=== PATIENT | male | born 1985 | race Caucasian/White ===

== ENCOUNTER → 2017-04-05 | Outpatient (CLI) | payer OTHER | END | disposition home or self-care (01) | LOC: EKG 13:00 | DX: I05.1 Rheumatic mitral insufficiency (principal); I07.1 Rheumatic tricuspid insufficiency; I27.20 Pulmonary hypertension, unspecified; R94.31 Abnormal electrocardiogram [ECG] [EKG] | CPT/HCPCS: 93306 ==

== ENCOUNTER 2017-04-19 18:52 | Inpatient (IN) | payer OTHER ==
[~2017-04-19] VITALS: Ht 193 cm; Wt 132.4 kg
[2017-04-19 19:58] LABS: BASOPHIL (%) 0.3 % (0-1); EOSINOPHIL (%) 0.1 % (0-5); HEMATOCRIT 43.9 % (38.0-50.0); HEMOGLOBIN 15.7 G/DL (12.5-16.6); IMMATURE GRANULOCYTE (%) 0.6 % (0.0-0.7); LYMPHOCYTE (%) 9.9 % (15-42); LYMPHOCYTE COUNT 1.4 K/uL (1.0-2.8); MCHC 35.8 G/DL (30.0-36.0); MCV 89.4 FL (86-99); MONOCYTE COUNT 0.7 K/uL (0-0.8); NEUTROPHIL (%) 84.1 % (45-76); NEUTROPHIL COUNT 11.8 K/uL (1.8-6.4); PLATELET COUNT 193 K/uL (156-360); RBC DIS.WIDTH-CV 12.6 % (11.8-14.6); RBC DIS.WIDTH-SD 41.1 % (39-53); RED BLOOD COUNT 4.91 M/uL (4.00-5.50)
[2017-04-19 20:17] LABS: ALBUMIN 4.2 g/dL (3.2-4.8); CHLORIDE 98 mEq/L (99-109); POTASSIUM 4.7 mEq/L (3.7-5.4); SODIUM 136 mEq/L (136-147)
[2017-04-19 20:18] LABS: AMYLASE 62 IU/L (1-118)
[2017-04-19 20:19] LABS: GLUCOSE 127 mg/dL (70-99); TOTAL PROTEIN 6.7 g/dL (6.4-8.3)
[2017-04-19 20:21] LABS: TOTAL BILIRUBIN 0.5 mg/dL (0.0-1.0)
[2017-04-19 20:22] LABS: SERUM ETHYL ALCOHOL < 10 mg/dL
[2017-04-19 20:23] LABS: ALKALINE PHOSPHATASE 59 IU/L (3-129); CREATININE 1.1 mg/dL (0.6-1.3); GFR ESTIMATE (CALCULATED) > 59 mL/min/ (58.99-99999)
[2017-04-19 20:24] LABS: AST (GOT) 31 IU/L (2-34); UREA NITROGEN (BUN) 20 mg/dL (9-23)
[2017-04-19 20:26] LABS: ALT (GPT) 64 IU/L (3-49)
[2017-04-19 22:00] LABS: APPEARANCE CLEAR ((CLEAR)); BILIRUBIN NEGATIVE; BLOOD NEGATIVE; COLOR YELLOW ((YELLOW)); GLUCOSE (STRIP) NEGATIVE; KETONES 5; LEUKOCYTES NEGATIVE; NITRITE NEGATIVE; PROTEIN (STRIP) NEGATIVE; SPECIFIC GRAVITY 1.011 (1.000-1.030); UCUL ADDED? NO; UROBILINOGEN 0.2 MG/DL (0.2-1.0)
[2017-04-19] MEDS ORDERED: SERTRALINE HCL100 MG PO (23:15)
[2017-04-19] MEDS ORDERED: TOPROL XL25 MG PO (23:15)
[2017-04-19] MEDS ORDERED: TYLENOL PM EX-1 EACH PO (23:15)
[2017-04-19] MEDS ORDERED: ERGOCALCIF50000 UNIT PO (23:16)
[2017-04-19] MEDS ORDERED: MEN'S MULTI-VI1 EACH PO (23:16)
[2017-04-19] MEDS ORDERED: MELOXICAM15 MG PO (23:16)
[2017-04-19] MEDS ORDERED: FISH OIL 1,0001 EAC7 PO (23:16)
[2017-04-19] MEDS ORDERED: VITAMIN D31000 UNI2 PO (23:16)
[2017-04-20] VITALS (8 sets, daily range): BP systolic 127–149; BP diastolic 70–84
[2017-04-21 00:23] VITALS: BP 134/84
[2017-04-21 04:04] VITALS: BP 135/74
[2017-04-21 08:16] VITALS: BP 130/65
[2017-04-21] MEDS ORDERED: DOCUSATE SODIU100 MG PO (09:05)
[2017-04-21] MEDS ORDERED: ROXICODONE5 MG PO (09:05)
[2017-04-21] MEDS ORDERED: KEFLEX500 MG PO (09:05)
[2017-04-21] MEDS ORDERED: BACITRACIN28.4 GM TP (09:05)
== END 2017-04-21 13:54 | disposition home or self-care (01) | DRG 552 ==
LOC: EME → EDBD 18:52 → TRA 18:52 → EDOF 04-20 02:26 → 4EAST 04-20 02:26 → ENRESERV 04-20 02:30 → 4EAST 04-20 03:59 → ENRESERV 04-20 15:39 → 3EAST 04-20 19:50
PROVIDERS: Emergency Medicine
PROC: 0HQ1XZZ Repair Face Skin, External Approach (ICD-10-PCS; principal; 2017-04-20)
PROC: 0HB1XZZ Excision of Face Skin, External Approach (ICD-10-PCS; principal; 2017-04-20)
DX: S12.190A Other displaced fracture of second cervical vertebra, initial encounter for closed fracture (principal); S01.81XA Laceration without foreign body of other part of head, initial encounter; S06.0X1A Concussion with loss of consciousness of 30 minutes or less, initial encounter; V43.52XA Car driver injured in collision with other type car in traffic accident, initial encounter; Y92.410 Unspecified street and highway as the place of occurrence of the external cause; R41.3 Other amnesia; I10 Essential (primary) hypertension; E78.5 Hyperlipidemia, unspecified; F32.9 Major depressive disorder, single episode, unspecified; F17.210 Nicotine dependence, cigarettes, uncomplicated; E66.9 Obesity, unspecified; Z68.33 Body mass index [BMI] 33.0-33.9, adult
CPT/HCPCS: 70450; 71010; 71260; 72040; 72125; 72129; 72132; 72170; 74177; 80053; 81003; 82150; 85025; 99281; 99285; G0480; J0690; J1170; J3010; J3480; J7030; J7042